=== PATIENT | female | born 1935 | race Two or more races ===

== ENCOUNTER 2021-08-01 03:22 | Inpatient (IN) | payer OTHER ==
[~2021-08-01] VITALS: Ht 162.6 cm; Wt 97.9 kg
[2021-08-01 05:41] LABS: Albumin 3.5 g/dL (3.4-5.0); Calcium 8.6 mg/dL (8.5-10.1); Potassium 4.1 mmol/L (3.5-5.1)
[2021-08-01 05:46] LABS: BUN/Creatinine Ratio 37.1; Bilirubin, Total 0.3 mg/dL (0.2-1.0); Total Protein 7.4 g/dL (6.4-8.2)
[2021-08-01 05:54] LABS: Urine Bacteria MANY /hpf (None Seen); Urine Blood Negative /uL (Negative); Urine Mucus FEW (None Seen); Urine Specific Gravity 1.023 (1.001-1.035); Urine WBC 1 /hpf (0 - 5)
[2021-08-01 06:28] LABS: Basophils # (auto) 0 10 ^3/uL (0-0.2); Basophils % (auto) 0.2 % (0.0-2.0); Eosinophils # (auto) 0 10 ^3/uL (0-0.8); Hemoglobin 11.9 g/dL (12.2-16.2); Lymphocytes # (auto) 0.5 10 ^3/uL (0.4-5.4); Lymphocytes % (auto) 3.5 % (10.0-50.0); Mean Corpuscular Hemoglobin 29.3 pg (28.0-32.0); Mean Corpuscular Volume 91.4 fL (80.0-100.0); Monocytes # (auto) 0.7 10 ^3/uL (0-1.3); Monocytes % (auto) 4.6 % (0.0-12.0); Neutrophils # (auto) 13.6 10 ^3/uL (1.6-8.6); Neutrophils % (auto) 91.7 % (37.0-80.0); Red Blood Cells 4.05 10^6/uL (4.0-5.20); Red Cell Distribution Width 14.2 % (11.8-14.3); White Blood Cell 14.8 10^3/uL (4.4-10.8)
[2021-08-01] MEDS ORDERED: ACETAMINOPHEN 325 MG TAB PO PRN (06:45)
[2021-08-01] MEDS ORDERED: ONDANSETRON HCL 4 MG/2 ML VIAL IV PRN (06:45)
[2021-08-01] MEDS ORDERED: hydrALAZINE HCL 20 MG/ML VL IV PRN (06:45)
[2021-08-01] MEDS ORDERED: DOCUSATE SOD 100 MG CAP PO PRN (06:45)
[2021-08-01] MEDS ORDERED: MORPHINE SULFATE INJECTION 2 MG/ML SYRG IV PRN (07:30)
[2021-08-01] MEDS ORDERED: NITROGLYCERIN 0.4 MG SL TAB SL PRN (07:30)
[2021-08-01] MEDS: cefTRIAXone 1GM/50ML D5W 50 ML IV SCH (10:39)
[2021-08-01] MEDS: SODIUM CHLORIDE 0.9% 1,000 ML IV SCH ×2 (10:39→23:25)
[2021-08-01] MEDS: FAMOTIDINE (10MG/ML) 2ML VL IV SCH (10:42)
[2021-08-01] MEDS: METOPROLOL TARTRATE 25 MG TAB PO SCH ×2 (10:42→21:54)
[2021-08-01] MEDS: ZINC SULFATE 220mg CAP or TAB PO SCH (10:42)
[2021-08-01] MEDS: MULTIPLE VITAMIN TAB PO SCH (10:42)
[2021-08-01] MEDS: ASCORBIC ACID 500 MG TAB PO SCH ×2 (10:43→21:54)
[2021-08-01] MEDS: ENOXAPARIN SOD 40 MG/0.4 ML SYRINGE SC SCH (10:43)
[2021-08-01] MEDS: HYDROcodone-ACET 5/325MG TAB PO PRN (17:17)
[2021-08-01 23:24] VITALS: BP 105/61
[2021-08-02] VITALS (8 sets, daily range): BP systolic 96–122; BP diastolic 49–85
[2021-08-02] MEDS ORDERED: OXYB5TAB61 PO (00:40)
[2021-08-02] MEDS ORDERED: LISI-706 PO (00:44)
[2021-08-02 07:23] LABS: Potassium 4.2 mmol/L (3.5-5.1)
[2021-08-02 07:26] LABS: Basophils # (auto) 0.1 10 ^3/uL (0-0.2); Basophils % (auto) 0.7 % (0.0-2.0); Eosinophils # (auto) 0.2 10 ^3/uL (0-0.8); Eosinophils % (auto) 1.8 % (0.0-7.0); Hemoglobin 10.1 g/dL (12.2-16.2); Lymphocytes # (auto) 1.2 10 ^3/uL (0.4-5.4); Mean Corpuscular Hemoglobin 29.9 pg (28.0-32.0); Mean Corpuscular Hgb Conc. 33.6 g/dL (32.0-36.0); Monocytes # (auto) 1.2 10 ^3/uL (0-1.3); Monocytes % (auto) 11.1 % (0.0-12.0); Neutrophils # (auto) 8.2 10 ^3/uL (1.6-8.6); Neutrophils % (auto) 75.4 % (37.0-80.0); Red Blood Cells 3.38 10^6/uL (4.0-5.20); Red Cell Distribution Width 13.8 % (11.8-14.3); White Blood Cell 10.9 10^3/uL (4.4-10.8)
[2021-08-02 07:29] LABS: Albumin 2.8 g/dL (3.4-5.0); BUN/Creatinine Ratio 33.8; Calcium 8.4 mg/dL (8.5-10.1)
[2021-08-02 07:31] LABS: Bilirubin, Total 0.6 mg/dL (0.2-1.0); Total Protein 5.8 g/dL (6.4-8.2)
[2021-08-02] MEDS: cefTRIAXone 1GM/50ML D5W 50 ML IV SCH (08:58)
[2021-08-02] MEDS: FAMOTIDINE (10MG/ML) 2ML VL IV SCH (08:58)
[2021-08-02] MEDS: ZINC SULFATE 220mg CAP or TAB PO SCH (08:59)
[2021-08-02] MEDS: ASCORBIC ACID 500 MG TAB PO SCH (08:59)
[2021-08-02] MEDS: MULTIPLE VITAMIN TAB PO SCH (08:59)
[2021-08-02] MEDS: METOPROLOL TARTRATE 25 MG TAB PO SCH ×2 (08:59→21:36)
[2021-08-02] MEDS: ENOXAPARIN SOD 40 MG/0.4 ML SYRINGE SC SCH (10:00)
[2021-08-02] MEDS ORDERED: BUPIVACAINE 0.5% P/F INJ 10 ML VIAL ONE (13:32)
[2021-08-02] MEDS ORDERED: fentaNYL CITRATE 100 MCG/2 ML VL ONE (13:33)
[2021-08-02] MEDS ORDERED: MORPHINE SULF PF 2 MG/2 ML SYRG ONE (13:33)
[2021-08-02] MEDS ORDERED: KETAMINE HCL 10 ML ONE (13:33)
[2021-08-02] MEDS ORDERED: MIDAZOLAM HCL 2MG/2ML 2ml VIAL (1mg/ml) ONE (13:33)
[2021-08-02] MEDS ORDERED: GLYCOPYRROLATE 0.2 MG/ML 1ML VIAL ONE (13:34)
[2021-08-02] MEDS ORDERED: ONDANSETRON HCL 4 MG/2 ML VIAL ONE (13:34)
[2021-08-02] MEDS ORDERED: PROPOFOL 10 MG/ML 20 ML IV ONE (13:34)
[2021-08-02] MEDS ORDERED: ePHEDrine SULFATE 50 MG/ML AMP ONE (13:34)
[2021-08-02] MEDS ORDERED: ceFAZolin 1GM/50ML 100 ML IV ONE (13:49)
[2021-08-02] MEDS ORDERED: BUPIVACAINE 0.25% INJ 50ML VIAL ONE (14:09)
[2021-08-02] MEDS ORDERED: TRANEXAMIC ACID 20 ML ONE (14:26)
[2021-08-02] MEDS ORDERED: DexAMETHasone SOD PHOS 10MG/1ML VIAL INJ IV PRN (17:00)
[2021-08-02] MEDS ORDERED: diphenhdrAMINE HCL 50 MG/1 ML VL IV PRN (17:00)
[2021-08-02] MEDS ORDERED: NALOXONE HCL 0.4 MG/ML VIAL IV PRN (17:00)
[2021-08-02] MEDS ORDERED: ONDANSETRON HCL 4 MG/2 ML VIAL IV PRN (17:00)
[2021-08-02] MEDS ORDERED: FAMOTIDINE (10MG/ML) 2ML VL IV ONE (17:00)
[2021-08-02] MEDS: LACTATED RINGER'S 1,000 ML IV SCH (20:18)
[2021-08-02] MEDS: ceFAZolin 1GM/50ML 50 ML IV SCH (21:35)
[2021-08-03] VITALS (19 sets, daily range): BP systolic 95–118; BP diastolic 44–58
[2021-08-03] MEDS: LACTATED RINGER'S 1,000 ML IV SCH ×2 (01:00→09:55)
[2021-08-03] MEDS: ceFAZolin 1GM/50ML 50 ML IV SCH (04:09)
[2021-08-03 06:15] LABS: Basophils # (auto) 0 10 ^3/uL (0-0.2); Eosinophils # (auto) 0 10 ^3/uL (0-0.8); Lymphocytes # (auto) 0.7 10 ^3/uL (0.4-5.4); Red Cell Distribution Width 13.5 % (11.8-14.3)
[2021-08-03 06:18] LABS: Basophils % (auto) 0.2 % (0.0-2.0); Hemoglobin 8.3 g/dL (12.2-16.2); Lymphocytes % (auto) 5.1 % (10.0-50.0); Mean Corpuscular Hemoglobin 30.6 pg (28.0-32.0); Mean Corpuscular Hgb Conc. 34.4 g/dL (32.0-36.0); Monocytes # (auto) 1.1 10 ^3/uL (0-1.3); Monocytes % (auto) 8.8 % (0.0-12.0); Neutrophils % (auto) 85.9 % (37.0-80.0); White Blood Cell 12.8 10^3/uL (4.4-10.8)
[2021-08-03 06:31] LABS: Albumin 2.4 g/dL (3.4-5.0); Calcium 7.7 mg/dL (8.5-10.1); Potassium 4.6 mmol/L (3.5-5.1)
[2021-08-03 06:34] LABS: BUN/Creatinine Ratio 32.1; Bilirubin, Total 0.4 mg/dL (0.2-1.0); Total Protein 5.1 g/dL (6.4-8.2)
[2021-08-03] MEDS: ENOXAPARIN SOD 40 MG/0.4 ML SYRINGE SC SCH (09:52)
[2021-08-03] MEDS: HYDROcodone-ACET 5/325MG TAB PO PRN (09:52)
[2021-08-03] MEDS: ZINC SULFATE 220mg CAP or TAB PO SCH (09:53)
[2021-08-03] MEDS: METOPROLOL TARTRATE 25 MG TAB PO SCH (09:53)
[2021-08-03] MEDS: MULTIPLE VITAMIN TAB PO SCH (09:53)
[2021-08-03] MEDS ORDERED: LACTATED RINGER'S 1,000 ML IV SCH (10:45)
[2021-08-04 05:00] VITALS: BP 116/55
[2021-08-04 07:08] LABS: Basophils # (auto) 0.1 10 ^3/uL (0-0.2); Basophils % (auto) 0.4 % (0.0-2.0); Eosinophils # (auto) 0 10 ^3/uL (0-0.8); Eosinophils % (auto) 0.3 % (0.0-7.0); Hematocrit 22.3 % (36.0-46.0); Hemoglobin 7.8 g/dL (12.2-16.2); Lymphocytes # (auto) 0.9 10 ^3/uL (0.4-5.4); Lymphocytes % (auto) 7.6 % (10.0-50.0); Mean Corpuscular Hemoglobin 30.8 pg (28.0-32.0); Mean Corpuscular Volume 87.9 fL (80.0-100.0); Monocytes # (auto) 1.4 10 ^3/uL (0-1.3); Monocytes % (auto) 11.2 % (0.0-12.0); Neutrophils # (auto) 9.7 10 ^3/uL (1.6-8.6); Neutrophils % (auto) 80.5 % (37.0-80.0); Red Blood Cells 2.54 10^6/uL (4.0-5.20); Red Cell Distribution Width 13.6 % (11.8-14.3); White Blood Cell 12.1 10^3/uL (4.4-10.8)
[2021-08-04 07:26] LABS: BUN/Creatinine Ratio 34.7; Calcium 7.8 mg/dL (8.5-10.1); Potassium 4.1 mmol/L (3.5-5.1)
[2021-08-04] MEDS ORDERED: cefTRIAXone 1GM/50ML D5W 50 ML IV SCH (09:00)
[2021-08-04 09:14] VITALS: BP 114/55
[2021-08-04] MEDS: ENOXAPARIN SOD 40 MG/0.4 ML SYRINGE SC SCH (09:27)
[2021-08-04] MEDS: MULTIPLE VITAMIN TAB PO SCH (09:27)
[2021-08-04] MEDS: HYDROcodone-ACET 5/325MG TAB PO PRN (09:28)
[2021-08-04] MEDS: Ensure HIGH Protein Chocolate 8oz Bottle PO SCH ×2 (12:00→19:42)
[2021-08-04 13:00] VITALS: BP 105/71
[2021-08-04 17:00] VITALS: BP 102/61
[2021-08-04 22:00] VITALS: BP 107/60
[2021-08-05 05:03] VITALS: BP 118/58
[2021-08-05 06:48] LABS: Basophils # (auto) 0 10 ^3/uL (0-0.2); Eosinophils % (auto) 1.2 % (0.0-7.0); Mean Corpuscular Hemoglobin 30.1 pg (28.0-32.0); Monocytes # (auto) 1.3 10 ^3/uL (0-1.3)
[2021-08-05 06:50] LABS: Basophils % (auto) 0.2 % (0.0-2.0); Eosinophils # (auto) 0.1 10 ^3/uL (0-0.8); Hematocrit 21.7 % (36.0-46.0); Hemoglobin 7.4 g/dL (12.2-16.2); Lymphocytes % (auto) 8.3 % (10.0-50.0); Mean Corpuscular Hgb Conc. 34.2 g/dL (32.0-36.0); Mean Corpuscular Volume 88.2 fL (80.0-100.0); Monocytes % (auto) 10.5 % (0.0-12.0); Neutrophils % (auto) 79.8 % (37.0-80.0); Red Blood Cells 2.46 10^6/uL (4.0-5.20); Red Cell Distribution Width 13.4 % (11.8-14.3); White Blood Cell 12.5 10^3/uL (4.4-10.8)
[2021-08-05] MEDS: Ensure HIGH Protein Chocolate 8oz Bottle PO SCH ×3 (08:00→18:00)
[2021-08-05 08:33] VITALS: BP 116/59
[2021-08-05] MEDS ORDERED: levoFLOXacin 500 MG TAB PO SCH (10:00)
[2021-08-05] MEDS: MULTIPLE VITAMIN TAB PO SCH (10:19)
[2021-08-05] MEDS: ENOXAPARIN SOD 40 MG/0.4 ML SYRINGE SC SCH (10:20)
[2021-08-05 13:00] VITALS: BP 113/59
[2021-08-05 15:43] VITALS: BP 107/78
[2021-08-05 16:03] VITALS: BP 111/50
[2021-08-05] MEDS: HYDROcodone-ACET 5/325MG TAB PO PRN ×2 (18:53→18:56)
[2021-08-05 22:00] VITALS: BP 130/56
== END 2021-08-05 23:30 | DRG 481 ==
LOC: EDBD 03:22 → ER 03:22 → OVERFLOW 03:23 → CENTRAL 23:28 → TELE-CENTR 08-02 06:42
PROVIDERS: ADMIT Nurse Practitioner Family; ATTEND Internal Medicine
PROC: 30233N1 Transfusion of Nonautologous Red Blood Cells into Peripheral Vein, Percutaneous Approach (ICD-10-PCS; 2021-08-02)
PROC: 0QS704Z Reposition Left Upper Femur with Internal Fixation Device, Open Approach (ICD-10-PCS; principal; 2021-08-02 14:17)
DX: S72.142A Displaced intertrochanteric fracture of left femur, initial encounter for closed fracture (principal); N39.0 Urinary tract infection, site not specified; N17.9 Acute kidney failure, unspecified; R65.10 Systemic inflammatory response syndrome (SIRS) of non-infectious origin without acute organ dysfunction; I10 Essential (primary) hypertension; R73.9 Hyperglycemia, unspecified; I49.3 Ventricular premature depolarization; E66.9 Obesity, unspecified; M85.80 Other specified disorders of bone density and structure, unspecified site; Z20.822 Contact with and (suspected) exposure to COVID-19; D64.9 Anemia, unspecified; W18.39XA Other fall on same level, initial encounter; Y93.01 Activity, walking, marching and hiking; Y92.098 Other place in other non-institutional residence as the place of occurrence of the external cause; Z82.0 Family history of epilepsy and other diseases of the nervous system; Z80.1 Family history of malignant neoplasm of trachea, bronchus and lung; Y99.8 Other external cause status; Z68.37 Body mass index [BMI] 37.0-37.9, adult
CPT/HCPCS: 36415; 71045; 73502; 76000; 80048; 80053; 81001; 83036; 83735; 84484; 85025; 85610; 86850; 86900; 86901; 86920; 87086; 87088; 87186; 87426; 93005; 93306; 96365; 96375; 97110; 97116; 97163; 97530; A4565; G0378; J0690; J0696; J2250; J2405; J2704; J3490

== ENCOUNTER 2021-12-13 11:03 | Day surgery (SDC) | payer OTHER ==
[2021-12-09 13:19] LABS: Basophils # (auto) 0.1 10 ^3/uL (0-0.2); Basophils % (auto) 1.4 % (0.0-2.0); Eosinophils # (auto) 0.2 10 ^3/uL (0-0.8); Eosinophils % (auto) 2.4 % (0.0-7.0); Hematocrit 35.5 % (36.0-46.0); Hemoglobin 11.5 g/dL (12.2-16.2); Lymphocytes # (auto) 0.7 10 ^3/uL (0.4-5.4); Lymphocytes % (auto) 8.9 % (10.0-50.0); Mean Corpuscular Hemoglobin 27.2 pg (28.0-32.0); Mean Corpuscular Hgb Conc. 32.5 g/dL (32.0-36.0); Mean Corpuscular Volume 83.6 fL (80.0-100.0); Monocytes # (auto) 0.6 10 ^3/uL (0-1.3); Monocytes % (auto) 7.1 % (0.0-12.0); Neutrophils # (auto) 6.4 10 ^3/uL (1.6-8.6); Neutrophils % (auto) 80.2 % (37.0-80.0); Red Blood Cells 4.24 10^6/uL (4.0-5.20); Red Cell Distribution Width 16.8 % (11.8-14.3)
[2021-12-09 13:33] LABS: INR 1.05 (0.9-1.15); Partial Thromboplastin Time 27.9 sec (23.6-33.0)
[2021-12-09 13:50] LABS: Albumin 3.5 g/dL (3.4-5.0); Potassium 3.9 mmol/L (3.5-5.1)
[2021-12-09 13:54] LABS: BUN/Creatinine Ratio 29.8; Bilirubin, Total 0.5 mg/dL (0.2-1.0)
[~2021-12-13] VITALS: Ht 160 cm; Wt 82.1 kg
[~2021-12-13 11:03] MED LIST: LISI-706 PO
[2021-12-13] MEDS ORDERED: PHENYLEPHRINE HCL 10 MG/ML VL IV ONE (11:04)
[2021-12-13] MEDS ORDERED: ceFAZolin 1GM/50ML 100 ML IV ONE (11:35)
[2021-12-13] MEDS ORDERED: LIDOCAINE 1%HCL (LOCAL ANESTH) 10 ML MDV ONE (12:16)
[2021-12-13] MEDS ORDERED: BUPIVACAINE W/ EPINEPH 0.25% INJ 50ML MDV ONE (12:16)
[2021-12-13] MEDS ORDERED: MIDAZOLAM HCL 2MG/2ML 2ml VIAL (1mg/ml) ONE (12:31)
[2021-12-13] MEDS ORDERED: fentaNYL CITRATE 100 MCG/2 ML VL ONE (12:31)
[2021-12-13] MEDS ORDERED: PROPOFOL 10 MG/ML 20 ML IV ONE (12:43)
[2021-12-13] MEDS ORDERED: DexAMETHasone SOD PHOS 10MG/1ML VIAL INJ ONE (12:43)
[2021-12-13 13:30] VITALS: BP 121/52
== END 2021-12-13 13:45 | disposition home or self-care (01) ==
LOC: SUR 11:03
PROVIDERS: ATTEND Orthopaedic Surgery Adult Reconstructive Orthopaedic Surgery
DX: T84.021A Dislocation of internal left hip prosthesis, initial encounter (principal); I10 Essential (primary) hypertension; I25.10 Atherosclerotic heart disease of native coronary artery without angina pectoris; Z98.41 Cataract extraction status, right eye; Z98.42 Cataract extraction status, left eye; Z86.2 Personal history of diseases of the blood and blood-forming organs and certain disorders involving the immune mechanism; Z80.1 Family history of malignant neoplasm of trachea, bronchus and lung; Z82.69 Family history of other diseases of the musculoskeletal system and connective tissue; Z20.822 Contact with and (suspected) exposure to COVID-19; Y83.1 Surgical operation with implant of artificial internal device as the cause of abnormal reaction of the patient, or of later complication, without mention of misadventure at the time of the procedure
CPT/HCPCS: 20680; 36415; 73501; 76000; 80053; 85025; 85610; 85730; J0690; J1100; J2001; J2250; J2370; J2704; J3010; U0003

== ENCOUNTER 2021-12-18 15:20 | Emergency (ER) | payer OTHER ==
[~2021-12-18] VITALS: Ht 160 cm; Wt 78.9 kg
[2021-12-18 16:44] VITALS: BP 114/59
== END 2021-12-18 16:50 | disposition home or self-care (01) ==
LOC: ER 15:20
DX: L02.416 Cutaneous abscess of left lower limb (principal); I10 Essential (primary) hypertension

== ENCOUNTER 2022-03-02 11:11 | Inpatient (IN) | payer OTHER ==
[~2022-03-02] VITALS: Ht 160 cm; Wt 86.3 kg
[2022-03-02 12:36] LABS: Basophils # (auto) 0 10 ^3/uL (0-0.2); Basophils % (auto) 0.5 % (0.0-2.0); Eosinophils # (auto) 0.1 10 ^3/uL (0-0.8); Eosinophils % (auto) 1.4 % (0.0-7.0); Hematocrit 33.4 % (36.0-46.0); Hemoglobin 10.7 g/dL (12.2-16.2); Lymphocytes # (auto) 0.7 10 ^3/uL (0.4-5.4); Lymphocytes % (auto) 8.3 % (10.0-50.0); Mean Corpuscular Hemoglobin 27.8 pg (28.0-32.0); Mean Corpuscular Volume 86.8 fL (80.0-100.0); Monocytes # (auto) 0.7 10 ^3/uL (0-1.3); Monocytes % (auto) 8.2 % (0.0-12.0); Neutrophils # (auto) 6.6 10 ^3/uL (1.6-8.6); Neutrophils % (auto) 81.6 % (37.0-80.0); Red Blood Cells 3.85 10^6/uL (4.0-5.20); Red Cell Distribution Width 14.9 % (11.8-14.3); White Blood Cell 8.1 10^3/uL (4.4-10.8)
[2022-03-02 12:49] LABS: Albumin 3.4 g/dL (3.4-5.0); Calcium 8.9 mg/dL (8.5-10.1); INR 0.98 (0.9-1.15); Potassium 3.5 mmol/L (3.5-5.1)
[2022-03-02 12:53] LABS: BUN/Creatinine Ratio 34.5; Bilirubin, Total 0.6 mg/dL (0.2-1.0); Total Protein 7.2 g/dL (6.4-8.2)
[2022-03-02] MEDS ORDERED: DEXTROSE (50%) 50ML SYRG IV PRN (18:30)
[2022-03-02] MEDS ORDERED: ONDANSETRON HCL 4 MG/2 ML VIAL IV PRN (18:30)
[2022-03-02] MEDS ORDERED: DOCUSATE SOD 100 MG CAP PO PRN (18:30)
[2022-03-02] MEDS ORDERED: HYDROcodone-ACET 5/325MG TAB PO PRN (18:30)
[2022-03-02] MEDS ORDERED: ACETAMINOPHEN 325 MG TAB PO PRN (18:30)
[2022-03-02] MEDS ORDERED: HYDROmorphone HCL 2 MG/ML VL/or syr IV PRN (18:30)
[2022-03-02] MEDS ORDERED: POTASSIUM EFFERVESENT TAB 25 MEQ PO ONE (18:45)
[2022-03-02] MEDS ORDERED: LABETALOL HCL 5 MG/ML 4ML SYRINGE IV PRN (18:45)
[2022-03-02] MEDS: LACTATED RINGER'S 1,000 ML IV ONE ×2 (19:04→22:09)
[2022-03-02 19:23] LABS: % Iron Saturation 12.2 % (15-50)
[2022-03-02 22:00] VITALS: BP 106/54
[2022-03-02] MEDS: SODIUM CHLOR 0.9% PF (SALINE LOCK) 10ML VIAL/SYR IV SCH (22:10)
[2022-03-02 23:01] LABS: Urine Bacteria MANY /hpf (None Seen); Urine Blood Negative /uL (Negative); Urine Mucus FEW (None Seen); Urine Specific Gravity 1.021 (1.001-1.035); Urine WBC 1 /hpf (0 - 5)
[2022-03-02 23:24] LABS: Creatinine, Urine 109 mg/dL (30.0-125.0); Sodium Urine 92 mmol/L (40-220)
[2022-03-03] MEDS: ACCU-CHEK COMFORT CURVE STRIP VI SCH ×4 (00:05→18:30)
[2022-03-03 05:00] VITALS: BP 104/47
[2022-03-03] MEDS: SODIUM CHLOR 0.9% PF (SALINE LOCK) 10ML VIAL/SYR IV SCH ×3 (05:17→22:00)
[2022-03-03] MEDS: InsuLIN REG 1unit/0.01ml Soln (100units/ml) SC SCH ×4 (05:18→18:30)
[2022-03-03 08:11] LABS: BUN/Creatinine Ratio 33.3; Calcium 8.7 mg/dL (8.5-10.1); Magnesium 1.9 mg/dL (1.6-2.6)
[2022-03-03] MEDS: cefTRIAXone 1GM/50ML D5W 50 ML IV SCH (08:51)
[2022-03-03 09:00] VITALS: BP 122/61
[2022-03-03 13:00] VITALS: BP 113/84
[2022-03-03] MEDS: SODIUM FERR GLUC 62.5MG/5ML 125 MG in SODIUM CHL 0.9% 100 ML IV SCH (13:45)
[2022-03-03 17:00] VITALS: BP 117/63
[2022-03-03 22:00] VITALS: BP 114/53
[2022-03-04] MEDS: InsuLIN REG 1unit/0.01ml Soln (100units/ml) SC SCH ×4 (00:35→17:35)
[2022-03-04 05:00] VITALS: BP 106/57
[2022-03-04] MEDS: SODIUM CHLOR 0.9% PF (SALINE LOCK) 10ML VIAL/SYR IV SCH ×2 (06:00→13:22)
[2022-03-04] MEDS: ACCU-CHEK COMFORT CURVE STRIP VI SCH ×4 (08:08→17:36)
[2022-03-04] MEDS: cefTRIAXone 1GM/50ML D5W 50 ML IV SCH (08:44)
[2022-03-04 09:00] VITALS: BP 115/63
[2022-03-04 13:02] VITALS: BP 115/64
[2022-03-04] MEDS: SODIUM FERR GLUC 62.5MG/5ML 125 MG in SODIUM CHL 0.9% 100 ML IV SCH (13:21)
[2022-03-04] MEDS ORDERED: ENOXAPARIN SOD 40 MG/0.4 ML SYRINGE SC ONE (15:00)
[2022-03-04 17:00] VITALS: BP 111/68
[2022-03-04 22:00] VITALS: BP 123/66
[2022-03-05] MEDS: InsuLIN REG 1unit/0.01ml Soln (100units/ml) SC SCH ×4 (00:35→23:30)
[2022-03-05] MEDS: ACCU-CHEK COMFORT CURVE STRIP VI SCH ×4 (00:38→23:30)
[2022-03-05] MEDS: SODIUM CHLOR 0.9% PF (SALINE LOCK) 10ML VIAL/SYR IV SCH ×4 (00:46→21:51)
[2022-03-05 05:00] VITALS: BP 121/69
[2022-03-05 06:15] LABS: Basophils # (auto) 0 10 ^3/uL (0-0.2); Basophils % (auto) 0.5 % (0.0-2.0); Eosinophils # (auto) 0.3 10 ^3/uL (0-0.8); Eosinophils % (auto) 3.6 % (0.0-7.0); Hematocrit 30.3 % (36.0-46.0); Hemoglobin 10.1 g/dL (12.2-16.2); Lymphocytes # (auto) 0.9 10 ^3/uL (0.4-5.4); Lymphocytes % (auto) 11.3 % (10.0-50.0); Mean Corpuscular Hemoglobin 28.5 pg (28.0-32.0); Mean Corpuscular Hgb Conc. 33.4 g/dL (32.0-36.0); Mean Corpuscular Volume 85.3 fL (80.0-100.0); Monocytes # (auto) 0.7 10 ^3/uL (0-1.3); Monocytes % (auto) 8.4 % (0.0-12.0); Neutrophils # (auto) 6.2 10 ^3/uL (1.6-8.6); Neutrophils % (auto) 76.2 % (37.0-80.0); Red Blood Cells 3.55 10^6/uL (4.0-5.20); Red Cell Distribution Width 14.7 % (11.8-14.3); White Blood Cell 8.2 10^3/uL (4.4-10.8)
[2022-03-05 06:38] LABS: BUN/Creatinine Ratio 33.3; Calcium 8.4 mg/dL (8.5-10.1)
[2022-03-05] MEDS: cefTRIAXone 1GM/50ML D5W 50 ML IV SCH (09:08)
[2022-03-05] MEDS: ENOXAPARIN SOD 40 MG/0.4 ML SYRINGE SC SCH (09:08)
[2022-03-05 09:18] VITALS: BP 118/73
[2022-03-05 13:00] VITALS: BP 123/55
[2022-03-05] MEDS: SODIUM FERR GLUC 62.5MG/5ML 125 MG in SODIUM CHL 0.9% 100 ML IV SCH (13:11)
[2022-03-05 16:44] VITALS: BP 117/63
[2022-03-05 21:41] VITALS: BP 130/67
[2022-03-06 04:42] VITALS: BP 112/60
[2022-03-06] MEDS: InsuLIN REG 1unit/0.01ml Soln (100units/ml) SC SCH ×3 (05:27→18:45)
[2022-03-06] MEDS: ACCU-CHEK COMFORT CURVE STRIP VI SCH ×4 (05:27→18:45)
[2022-03-06] MEDS: SODIUM CHLOR 0.9% PF (SALINE LOCK) 10ML VIAL/SYR IV SCH ×2 (05:27→14:17)
[2022-03-06 09:20] VITALS: BP 133/68
[2022-03-06] MEDS: cefTRIAXone 1GM/50ML D5W 50 ML IV SCH (10:05)
[2022-03-06] MEDS: ENOXAPARIN SOD 40 MG/0.4 ML SYRINGE SC SCH (10:06)
[2022-03-06] MEDS: SODIUM FERR GLUC 62.5MG/5ML 125 MG in SODIUM CHL 0.9% 100 ML IV SCH (12:23)
[2022-03-06 12:46] VITALS: BP 116/73
[2022-03-06 16:55] VITALS: BP 125/65
== END 2022-03-06 20:57 | disposition short-term general hospital (02) | DRG 560 ==
LOC: EDUNIT# 11:11 → ER 11:11 → EDBD 11:11 → OVERFLOW 18:26 → WEST WING 20:30
PROVIDERS: ADMIT Internal Medicine; ATTEND Internal Medicine
DX: T84.011A Broken internal left hip prosthesis, initial encounter (principal); N39.0 Urinary tract infection, site not specified; S72.22XK Displaced subtrochanteric fracture of left femur, subsequent encounter for closed fracture with nonunion; S09.90XA Unspecified injury of head, initial encounter; M16.11 Unilateral primary osteoarthritis, right hip; D50.9 Iron deficiency anemia, unspecified; W18.39XA Other fall on same level, initial encounter; Y93.01 Activity, walking, marching and hiking; Z20.822 Contact with and (suspected) exposure to COVID-19; Y83.8 Other surgical procedures as the cause of abnormal reaction of the patient, or of later complication, without mention of misadventure at the time of the procedure; Y79.2 Prosthetic and other implants, materials and accessory orthopedic devices associated with adverse incidents; I10 Essential (primary) hypertension; Z80.1 Family history of malignant neoplasm of trachea, bronchus and lung; Z82.0 Family history of epilepsy and other diseases of the nervous system; Y92.89 Other specified places as the place of occurrence of the external cause; Y99.8 Other external cause status
CPT/HCPCS: 36415; 70450; 71045; 72192; 73502; 80048; 80053; 81001; 82306; 82570; 82728; 82962; 83036; 83540; 83550; 83735; 84300; 84443; 84484; 85025; 85610; 85730; 93005; G0378; J0696; J1815

== ENCOUNTER → 2023-01-04 | Outpatient (CLI) | payer OTHER ==
[2023-01-04 11:02] LABS: Basophils # (auto) 0.1 10 ^3/uL (0-0.2); Basophils % (auto) 0.8 % (0.0-2.0); Eosinophils # (auto) 0.2 10 ^3/uL (0-0.8); Eosinophils % (auto) 2.6 % (0.0-7.0); Hematocrit 37.8 % (36.0-46.0); Hemoglobin 12.4 g/dL (12.2-16.2); Lymphocytes # (auto) 1.2 10 ^3/uL (0.4-5.4); Lymphocytes % (auto) 14.9 % (10.0-50.0); Mean Corpuscular Hemoglobin 28.1 pg (28.0-32.0); Mean Corpuscular Hgb Conc. 32.9 g/dL (32.0-36.0); Mean Corpuscular Volume 85.4 fL (80.0-100.0); Monocytes # (auto) 0.5 10 ^3/uL (0-1.3); Monocytes % (auto) 6.8 % (0.0-12.0); Neutrophils # (auto) 5.8 10 ^3/uL (1.6-8.6); Neutrophils % (auto) 74.9 % (37.0-80.0); Nucleated Red Blood Cells % 0.1 %; Red Blood Cells 4.42 10^6/uL (4.0-5.20); Red Cell Distribution Width 14.4 % (11.8-14.3); White Blood Cell 7.8 10^3/uL (4.4-10.8)
[2023-01-04 11:38] LABS: Albumin 3.3 g/dL (3.4-5.0); Potassium 3.8 mmol/L (3.5-5.1)
[2023-01-04 11:43] LABS: BUN/Creatinine Ratio 31.3 (10.0-20.0); Bilirubin, Total 0.5 mg/dL (0.2-1.0); Total Protein 7.7 g/dL (6.4-8.2)
== END | disposition home or self-care (01) ==
LOC: LAB 10:46
PROVIDERS: ATTEND Nurse Practitioner
DX: I10 Essential (primary) hypertension (principal); E78.5 Hyperlipidemia, unspecified
CPT/HCPCS: 36415; 80053; 80061; 84443; 85025

== ENCOUNTER 2023-04-10 12:01 | Inpatient (IN) | payer OTHER ==
[~2023-04-10] VITALS: Ht 160 cm; Wt 48.5 kg
[2023-04-10] MEDS ORDERED: SODIUM CHLORIDE 0.9% 1,000 ML IV ONE ×2 (12:15→13:00)
[2023-04-10 13:02] LABS: Band Neutrophils % (manual) 0; Basophils % (manual) 0 (0.0-2.0); Blast Cells 0; Eosinophils % (manual) 0 (0-7); Metamyelocytes % 0; Monocytes % (manual) 0 (0-12); Myelocytes % 0; Promyelocytes % 0; Reactive Lymphocytes 0
[2023-04-10] MEDS ORDERED: PIPERACILLIN-TAZOB 3.375GM 100 ML IV ONE (13:15)
[2023-04-10] MEDS ORDERED: ACETAMINOPHEN 325 MG TAB PO ONE (13:15)
[2023-04-10 13:30] VITALS: PULSE 128; RESP 27; O2SAT 98
[2023-04-10 13:35] LABS: Hematocrit 40.3 % (36.0-46.0); Hemoglobin 13.2 g/dL (12.2-16.2); Mean Corpuscular Hgb Conc. 32.7 g/dL (32.0-36.0); Mean Corpuscular Volume 88.8 fL (80.0-100.0); Red Blood Cells 4.54 10^6/uL (4.0-5.20); Red Cell Distribution Width 16.1 % (11.8-14.3)
[2023-04-10 13:42] LABS: Band Neutrophils % (manual) 0; Basophils % (manual) 0 (0.0-2.0); Blast Cells 0; Eosinophils % (manual) 0 (0-7); Metamyelocytes % 0; Monocytes % (manual) 0 (0-12); Myelocytes % 0; Promyelocytes % 0; Reactive Lymphocytes 0
[2023-04-10 13:47] LABS: Alanine Aminotransferase 11 U/L (7-40); Albumin 3.5 g/dL (3.2-4.8); Alkaline Phosphatase 84 U/L (46-116); Anion Gap 12.8 (5-15); Aspartate Aminotransferase 17 U/L (13-40); BUN/Creatinine Ratio 25.5 (10.0-20.0); Blood Urea Nitrogen 28 mg/dL (9-23); Calcium 8.6 mg/dL (8.5-10.1); Carbon Dioxide 18.2 mmol/L (20-30); Chloride 111 mmol/L (98-107); Creatine Kinase IFCC 28 U/L (34-145); Glucose 102 mg/dL (74-106); Lipase 69 U/L (12-53); Magnesium 1.6 mg/dL (1.6-2.6); Potassium 3.7 mmol/L (3.5-5.1); Sodium 142 mmol/L (136-145)
[2023-04-10 13:48] LABS: Bilirubin, Total 0.7 mg/dL (0.2-1.0)
[2023-04-10 14:02] LABS: Lymphocytes % (manual) 4 (10.0-50.0)
[2023-04-10 14:03] LABS: Platelet Estimate Decreased
[2023-04-10 14:06] LABS: Lymphocytes % (manual) 4 (10.0-50.0); Platelet Estimate Decreased
[2023-04-10] MEDS ORDERED: ACETAMINOPHEN 325 MG TAB PO PRN (16:15)
[2023-04-10] MEDS ORDERED: NITROGLYCERIN 0.4 MG SL TAB SL PRN (16:15)
[2023-04-10] MEDS ORDERED: MORPHINE SULFATE INJ 2 MG/ml SYRG IV PRN (16:15)
[2023-04-10] MEDS ORDERED: IBUPROFEN 600 MG TAB PO PRN (16:15)
[2023-04-10] MEDS ORDERED: HYDROcodone-ACET 5/325MG TAB PO PRN (16:15)
[2023-04-10] MEDS ORDERED: ONDANSETRON HCL 4 MG/2 ML VIAL IV PRN (16:45)
[2023-04-10] MEDS ORDERED: LABETALOL HCL 5 MG/ML 4ML SYRINGE IV PRN (16:45)
[2023-04-10] MEDS ORDERED: ASPirin-EC 325mg tab PO ONE (17:00)
[2023-04-10] MEDS: NOREPINEPHRINE 8 MG/250ML KIT 250 ML IV SCH (18:30)
[2023-04-10 19:30] VITALS: PULSE 94; RESP 12; O2SAT 97
[2023-04-10] MEDS: SODIUM CHLORIDE 0.9% 1,000 ML IV SCH (19:30)
[2023-04-10 19:50] LABS: Urine Bacteria FEW /hpf (None Seen); Urine Blood 3+ /uL (Negative); Urine Clarity Clear (Clear); Urine Color Yellow (Yellow); Urine Protein, UAD 1+ (Negative); Urine Specific Gravity 1.011 (1.001-1.035); Urine Urobilinogen Normal (Negative); Urine WBC 21 /hpf (0 - 5); Urine pH 8.5 (5.0-8.0)
[2023-04-10] MEDS: metroNIDAZOLE 500MG/100ML 100 ML IV SCH (21:49)
[2023-04-10] MEDS: ATORVASTATIN 20 MG TAB PO SCH (21:49)
[2023-04-10 21:54] LABS: Lactic Acid w/Reflex 6.7 mmol/L (0.4-2.0)
[2023-04-11] MEDS: SODIUM CHLORIDE 0.9% 1,000 ML IV SCH ×3 (02:46→17:39)
[2023-04-11] MEDS ORDERED: DIGOXIN (250MCG/ML) 2 ML AMPULE IV ONE ×2 (03:30)
[2023-04-11] MEDS: metroNIDAZOLE 500MG/100ML 100 ML IV SCH ×3 (06:14→20:50)
[2023-04-11 06:28] LABS: Hematocrit 34.6 % (36.0-46.0); Hemoglobin 11.2 g/dL (12.2-16.2); Mean Corpuscular Hgb Conc. 32.4 g/dL (32.0-36.0); Mean Corpuscular Volume 89.4 fL (80.0-100.0); Red Blood Cells 3.87 10^6/uL (4.0-5.20); Red Cell Distribution Width 16.1 % (11.8-14.3); White Blood Cell 20.6 10^3/uL (4.4-10.8)
[2023-04-11 06:30] LABS: Alanine Aminotransferase 14 U/L (7-40); Albumin 2.8 g/dL (3.2-4.8); Alkaline Phosphatase 69 U/L (46-116); Anion Gap 13.8 (5-15); Aspartate Aminotransferase 26 U/L (13-40); BUN/Creatinine Ratio 13.2 (10.0-20.0); Blood Urea Nitrogen 17 mg/dL (9-23); Calcium 7.5 mg/dL (8.5-10.1); Carbon Dioxide 12.2 mmol/L (20-30); Chloride 112 mmol/L (98-107); Glucose 109 mg/dL (74-106); LDL Cholesterol 53 mg/dL (< 100); Potassium 3.9 mmol/L (3.5-5.1); Sodium 138 mmol/L (136-145); Triglycerides 71 mg/dL (< 150)
[2023-04-11 06:31] LABS: Bilirubin, Total 0.5 mg/dL (0.2-1.0); Cholesterol 96 mg/dL (< 200); HDL Cholesterol 27 mg/dL (40-59); Total Protein 5.2 g/dL (5.7-8.2)
[2023-04-11 06:54] LABS: Basophils % (manual) 0 (0.0-2.0); Blast Cells 0; Eosinophils % (manual) 0 (0-7); Lymphocytes % (manual) 0 (10.0-50.0); Metamyelocytes % 0; Myelocytes % 0; Promyelocytes % 0; Reactive Lymphocytes 0
[2023-04-11] MEDS: ENOXAPARIN SOD 40 MG/0.4 ML SYRINGE SC SCH (08:43)
[2023-04-11] MEDS: ASPirin-EC 81 mg tab PO SCH (08:43)
[2023-04-11] MEDS: cefTRIAXone 1GM/50ML D5W 50 ML IV SCH (09:28)
[2023-04-11] MEDS ORDERED: PANTOPRAZOLE 40 MG TAB PO SCH (10:00)
[2023-04-11 10:49] LABS: Band Neutrophils % (manual) 8; Monocytes % (manual) 2 (0-12); Platelet Estimate Decreased
[2023-04-11] MEDS: NOREPINEPHRINE 8 MG/250ML KIT 250 ML IV SCH (17:45)
[2023-04-11 20:00] VITALS: PULSE 90; RESP 20; O2SAT 97
[2023-04-11] MEDS: ATORVASTATIN 20 MG TAB PO SCH (20:50)
[2023-04-12] MEDS: SODIUM CHLORIDE 0.9% 1,000 ML IV SCH ×2 (01:35→10:02)
[2023-04-12] MEDS: metroNIDAZOLE 500MG/100ML 100 ML IV SCH ×3 (05:02→22:30)
[2023-04-12 05:46] LABS: Basophils # (auto) 0 10 ^3/uL (0-0.2); Basophils % (auto) 0.2 % (0.0-2.0); Eosinophils # (auto) 0.1 10 ^3/uL (0-0.8); Eosinophils % (auto) 0.5 % (0.0-7.0); Hematocrit 32.2 % (36.0-46.0); Hemoglobin 10.4 g/dL (12.2-16.2); Lymphocytes # (auto) 0.7 10 ^3/uL (0.4-5.4); Lymphocytes % (auto) 3.1 % (10.0-50.0); Mean Corpuscular Hemoglobin 28.5 pg (28.0-32.0); Mean Corpuscular Hgb Conc. 32.4 g/dL (32.0-36.0); Mean Corpuscular Volume 87.9 fL (80.0-100.0); Monocytes # (auto) 0.5 10 ^3/uL (0-1.3); Monocytes % (auto) 2.4 % (0.0-12.0); Neutrophils # (auto) 19.5 10 ^3/uL (1.6-8.6); Neutrophils % (auto) 93.8 % (37.0-80.0); Nucleated Red Blood Cells % 0.1 %; Red Blood Cells 3.66 10^6/uL (4.0-5.20); Red Cell Distribution Width 16.8 % (11.8-14.3); White Blood Cell 20.8 10^3/uL (4.4-10.8)
[2023-04-12 06:02] LABS: Lactic Acid w/Reflex 2.8 mmol/L (0.4-2.0)
[2023-04-12 06:19] LABS: Alanine Aminotransferase 15 U/L (7-40); Alkaline Phosphatase 106 U/L (46-116); BUN/Creatinine Ratio 14.6 (10.0-20.0); Blood Urea Nitrogen 19 mg/dL (9-23); Calcium 7.5 mg/dL (8.5-10.1); Chloride 113 mmol/L (98-107); Glucose 90 mg/dL (74-106); Magnesium 1.7 mg/dL (1.6-2.6); Potassium 3.5 mmol/L (3.5-5.1); Sodium 140 mmol/L (136-145)
[2023-04-12 06:20] LABS: Albumin 2.8 g/dL (3.2-4.8); Aspartate Aminotransferase 27 U/L (13-40); Bilirubin, Total 0.4 mg/dL (0.2-1.0); Phosphorus 2.8 mg/dL (2.4-5.1)
[2023-04-12 07:40] VITALS: PULSE 67; RESP 21; O2SAT 98
[2023-04-12] MEDS: cefTRIAXone 1GM/50ML D5W 50 ML IV SCH (09:02)
[2023-04-12] MEDS: ENOXAPARIN SOD 40 MG/0.4 ML SYRINGE SC SCH (10:18)
[2023-04-12] MEDS: ASPirin-EC 81 mg tab PO SCH (10:18)
[2023-04-12] MEDS: NOREPINEPHRINE 8 MG/250ML KIT 250 ML IV SCH (17:45)
[2023-04-12 19:50] VITALS: PULSE 80; RESP 13; O2SAT 99
[2023-04-12] MEDS: ATORVASTATIN 20 MG TAB PO SCH (22:29)
[2023-04-13] VITALS (7 sets, daily range): BP systolic 116–133; BP diastolic 61–62; PULSE 40–76; RESP 16–20; TEMP 97.9–98; O2SAT 97–99
[2023-04-13 05:42] LABS: Basophils # (auto) 0 10 ^3/uL (0-0.2); Basophils % (auto) 0.2 % (0.0-2.0); Hemoglobin 10.6 g/dL (12.2-16.2); Lymphocytes # (auto) 0.8 10 ^3/uL (0.4-5.4); Mean Corpuscular Hemoglobin 28.7 pg (28.0-32.0); Mean Corpuscular Hgb Conc. 33.3 g/dL (32.0-36.0); Neutrophils # (auto) 18.6 10 ^3/uL (1.6-8.6); Red Blood Cells 3.69 10^6/uL (4.0-5.20)
[2023-04-13 05:45] LABS: Eosinophils # (auto) 0.1 10 ^3/uL (0-0.8); Eosinophils % (auto) 0.6 % (0.0-7.0); Hematocrit 31.8 % (36.0-46.0); Lymphocytes % (auto) 3.8 % (10.0-50.0); Mean Corpuscular Volume 86.2 fL (80.0-100.0); Monocytes # (auto) 0.5 10 ^3/uL (0-1.3); Monocytes % (auto) 2.3 % (0.0-12.0); Neutrophils % (auto) 93.1 % (37.0-80.0); Red Cell Distribution Width 16.3 % (11.8-14.3); White Blood Cell 19.9 10^3/uL (4.4-10.8)
[2023-04-13 06:00] LABS: Chloride 114 mmol/L (98-107); Potassium 3.4 mmol/L (3.5-5.1); Sodium 140 mmol/L (136-145)
[2023-04-13 06:01] LABS: Anion Gap 3.4 (5-15); Calcium 7.6 mg/dL (8.5-10.1); Carbon Dioxide 22.6 mmol/L (20-30)
[2023-04-13 06:06] LABS: BUN/Creatinine Ratio 25.7 (10.0-20.0); Blood Urea Nitrogen 18 mg/dL (9-23); Glucose 79 mg/dL (74-106)
[2023-04-13 06:07] LABS: Magnesium 1.7 mg/dL (1.6-2.6)
[2023-04-13] MEDS: metroNIDAZOLE 500MG/100ML 100 ML IV SCH ×2 (06:38→15:05)
[2023-04-13] MEDS ORDERED: POTASSIUM CHL 20 Meq TABLET PO ONE (08:30)
[2023-04-13] MEDS ORDERED: MAGNESIUM OXIDE 400 MG TAB PO ONE (08:30)
[2023-04-13] MEDS: ASPirin-EC 81 mg tab PO SCH (11:01)
[2023-04-13] MEDS: PANTOPRAZOLE 40 MG TAB PO SCH (11:01)
[2023-04-13] MEDS: ENOXAPARIN SOD 30 MG/0.3 ML SYRINGE SC SCH (11:01)
[2023-04-13] MEDS: CEFTRIAXONE SODIUM 2 GM in D5W 5% 100 ML IV SCH (11:01)
[2023-04-13 12:20] LABS: Hepatitis C Antibody Negative (Negative)
[2023-04-13 15:40] LABS: Hepatitis B Surface Antigen Negative (Negative)
[2023-04-14] MEDS: ATORVASTATIN 20 MG TAB PO SCH (00:12)
[2023-04-14] MEDS: metroNIDAZOLE 500MG/100ML 100 ML IV SCH ×3 (00:12→14:58)
[2023-04-14 05:02] VITALS: BP 130/71; PULSE 72; RESP 18; TEMP 97.8; O2SAT 97
[2023-04-14 06:18] LABS: Hematocrit 33.8 % (36.0-46.0); Hemoglobin 11.4 g/dL (12.2-16.2); Mean Corpuscular Hemoglobin 28.9 pg (28.0-32.0); Mean Corpuscular Hgb Conc. 33.6 g/dL (32.0-36.0); Mean Corpuscular Volume 86.2 fL (80.0-100.0); Red Blood Cells 3.93 10^6/uL (4.0-5.20); Red Cell Distribution Width 15.8 % (11.8-14.3); White Blood Cell 14.2 10^3/uL (4.4-10.8)
[2023-04-14 07:11] LABS: Basophils % (manual) 0 (0.0-2.0); Blast Cells 0; Eosinophils % (manual) 0 (0-7); Myelocytes % 0; Promyelocytes % 0; Reactive Lymphocytes 0
[2023-04-14 07:34] LABS: Chloride 115 mmol/L (98-107); Sodium 141 mmol/L (136-145)
[2023-04-14 07:35] LABS: Anion Gap 7.9 (5-15); Carbon Dioxide 18.1 mmol/L (20-30)
[2023-04-14 07:36] LABS: Calcium 7.7 mg/dL (8.5-10.1)
[2023-04-14 07:41] LABS: BUN/Creatinine Ratio 22.7 (10.0-20.0); Blood Urea Nitrogen 15 mg/dL (9-23); Glucose 79 mg/dL (74-106); Magnesium 1.7 mg/dL (1.6-2.6)
[2023-04-14 08:00] VITALS: BP 125/73; PULSE 69; PULSE 75; RESP 20; TEMP 98.1; O2SAT 96
[2023-04-14] MEDS ORDERED: MAGNESIUM SULFATE 1GM/100ML 100 ML IV ONE (09:15)
[2023-04-14] MEDS: ASPirin-EC 81 mg tab PO SCH (09:26)
[2023-04-14] MEDS: ENOXAPARIN SOD 30 MG/0.3 ML SYRINGE SC SCH (09:27)
[2023-04-14] MEDS: PANTOPRAZOLE 40 MG TAB PO SCH (09:27)
[2023-04-14 10:48] LABS: Band Neutrophils % (manual) 3; Lymphocytes % (manual) 8 (10.0-50.0); Metamyelocytes % 1; Monocytes % (manual) 6 (0-12); Platelet Estimate Decreased
[2023-04-14] MEDS: CEFTRIAXONE SODIUM 2 GM in D5W 5% 100 ML IV SCH (11:08)
[2023-04-14 12:00] VITALS: BP 125/98; PULSE 75; RESP 20; TEMP 97.8; O2SAT 96
[2023-04-14 16:00] VITALS: BP 118/51; PULSE 84; RESP 20; TEMP 97.7; O2SAT 92
[2023-04-14 17:07] LABS: COVID19 ANTIGEN SOFIA FIA NEGATIVE (NEGATIVE)
[2023-04-14 18:49] VITALS: BP 118/51; PULSE 84; RESP 20; TEMP 97.7; O2SAT 92
[2023-04-15] MEDS ORDERED: MAGNESIUM OXIDE 400 MG TAB PO SCH (10:00)
== END 2023-04-14 19:45 | DRG 871 ==
LOC: EDBD 12:01 → ER 12:01 → TELE 16:15 → TELE-CENTR 04-13 10:04
PROVIDERS: ADMIT Nurse Practitioner Family; ATTEND Internal Medicine
DX: A41.9 Sepsis, unspecified organism (principal); I21.4 Non-ST elevation (NSTEMI) myocardial infarction; R65.21 Severe sepsis with septic shock; N17.9 Acute kidney failure, unspecified; I50.32 Chronic diastolic (congestive) heart failure; N13.6 Pyonephrosis; Z68.1 Body mass index [BMI] 19.9 or less, adult; D69.6 Thrombocytopenia, unspecified; I95.1 Orthostatic hypotension; Z20.822 Contact with and (suspected) exposure to COVID-19; K80.20 Calculus of gallbladder without cholecystitis without obstruction; L89.329 Pressure ulcer of left buttock, unspecified stage; Z96.642 Presence of left artificial hip joint; I11.0 Hypertensive heart disease with heart failure; E66.9 Obesity, unspecified; I49.5 Sick sinus syndrome; Z82.0 Family history of epilepsy and other diseases of the nervous system; Z80.1 Family history of malignant neoplasm of trachea, bronchus and lung
CPT/HCPCS: 36415; 71045; 71275; 74176; 76705; 80048; 80053; 80061; 81001; 82550; 83036; 83605; 83690; 83735; 84100; 84443; 84484; 85007; 85025; 85027; 85048; 85379; 86803; 87040; 87077; 87086; 87088; 87186; 87340; 87426; 87493; 93005; 93306; 93971; 96361; 96365; 97163; 99291; G0378; J0696; J2543; J3490; J7060

== ENCOUNTER → 2023-08-01 | Outpatient (CLI) | payer OTHER ==
[2023-08-01 16:15] LABS: Urine Bacteria MOD /hpf (None Seen); Urine Blood TRACE /uL (Negative); Urine Clarity HAZY (Clear); Urine Color Yellow (Yellow); Urine Protein, UAD Negative (Negative); Urine Specific Gravity 1.019 (1.001-1.035); Urine Urobilinogen Normal (Negative); Urine WBC 273 /hpf (0 - 5)
== END | disposition home or self-care (01) ==
LOC: LAB 15:43
PROVIDERS: ATTEND Nurse Practitioner
DX: N39.0 Urinary tract infection, site not specified (principal)
CPT/HCPCS: 81001

== ENCOUNTER 2023-08-21 11:58 | Inpatient (IN) | payer OTHER ==
[~2023-08-21] VITALS: Ht 160 cm; Wt 76.7 kg
[2023-08-21] MEDS ORDERED: SODIUM CHLORIDE 0.9% 1,000 ML IV ONE ×2 (13:00→15:15)
[2023-08-21 13:38] LABS: Basophils # (auto) 0 10 ^3/uL (0-0.2); Basophils % (auto) 0.1 % (0.0-2.0); Eosinophils # (auto) 0.7 10 ^3/uL (0-0.8); Eosinophils % (auto) 4.6 % (0.0-7.0); Hemoglobin 13.5 g/dL (12.2-16.2); Lymphocytes # (auto) 0.3 10 ^3/uL (0.4-5.4); Lymphocytes % (auto) 1.7 % (10.0-50.0); Mean Corpuscular Hemoglobin 28.5 pg (28.0-32.0); Mean Corpuscular Hgb Conc. 32.2 g/dL (32.0-36.0); Mean Corpuscular Volume 88.4 fL (80.0-100.0); Monocytes # (auto) 0.4 10 ^3/uL (0-1.3); Monocytes % (auto) 2.8 % (0.0-12.0); Neutrophils # (auto) 14.3 10 ^3/uL (1.6-8.6); Neutrophils % (auto) 90.8 % (37.0-80.0); Nucleated Red Blood Cells % 0.1 %; Red Blood Cells 4.75 10^6/uL (4.0-5.20); Red Cell Distribution Width 14.8 % (11.8-14.3); White Blood Cell 15.8 10^3/uL (4.4-10.8)
[2023-08-21 13:48] LABS: Chloride 104 mmol/L (98-107); Potassium 3.4 mmol/L (3.5-5.1); Sodium 135 mmol/L (136-145)
[2023-08-21 13:49] LABS: Anion Gap 10 (5-15); Carbon Dioxide 21 mmol/L (20-30)
[2023-08-21 13:50] LABS: Calcium 9.4 mg/dL (8.5-10.1)
[2023-08-21 13:54] LABS: BUN/Creatinine Ratio 27.5 (10.0-20.0); Blood Urea Nitrogen 22 mg/dL (9-23); Glucose 102 mg/dL (74-106)
[2023-08-21 13:58] LABS: Lactic Acid w/Reflex 2.5 mmol/L (0.4-2.0)
[2023-08-21 14:18] LABS: Urine Bacteria MOD /hpf (None Seen); Urine Blood TRACE /uL (Negative); Urine Clarity HAZY (Clear); Urine Color Yellow (Yellow); Urine Protein, UAD TRACE (Negative); Urine Specific Gravity 1.019 (1.001-1.035); Urine Urobilinogen Normal (Negative); Urine WBC 56 /hpf (0 - 5)
[2023-08-21] MEDS ORDERED: cefTRIAXone 1GM/50ML D5W 50 ML IV ONE (15:15)
[2023-08-21] MEDS ORDERED: ONDANSETRON HCL 4 MG/2 ML VIAL IV PRN (18:15)
[2023-08-21] MEDS ORDERED: POTASSIUM EFFERVESENT TAB 25 MEQ PO ONE (18:15)
[2023-08-21] MEDS ORDERED: DOCUSATE SOD 100 MG CAP PO PRN (18:15)
[2023-08-21] MEDS ORDERED: MORPHINE SULFATE INJ 2 MG/ml SYRG IV PRN (18:15)
[2023-08-21] MEDS ORDERED: levoFLOXacin 500MG 100 ML IV ONE (19:00)
[2023-08-21] MEDS: SODIUM CHLORIDE 0.9% 1,000 ML IV SCH (20:21)
[2023-08-21] MEDS: ENOXAPARIN SOD 40 MG/0.4 ML SYRINGE SC SCH (20:21)
[2023-08-22 02:01] VITALS: BP 122/52; PULSE 95; RESP 18; TEMP 98.1; O2SAT 97
[2023-08-22] MEDS ORDERED: NITR100C6 PO (03:01)
[2023-08-22] MEDS ORDERED: OXYB2.5T (03:03)
[2023-08-22] MEDS: SODIUM CHLORIDE 0.9% 1,000 ML IV SCH ×2 (04:15→09:45)
[2023-08-22 05:00] VITALS: BP 121/61; PULSE 68; RESP 18; TEMP 98.1; O2SAT 99
[2023-08-22 07:47] LABS: Basophils # (auto) 0 10 ^3/uL (0-0.2); Basophils % (auto) 0.4 % (0.0-2.0); Eosinophils # (auto) 0.9 10 ^3/uL (0-0.8); Eosinophils % (auto) 11.8 % (0.0-7.0); Hematocrit 35.7 % (36.0-46.0); Hemoglobin 11.7 g/dL (12.2-16.2); Lymphocytes # (auto) 0.5 10 ^3/uL (0.4-5.4); Lymphocytes % (auto) 6.4 % (10.0-50.0); Mean Corpuscular Hemoglobin 28.5 pg (28.0-32.0); Mean Corpuscular Hgb Conc. 32.8 g/dL (32.0-36.0); Mean Corpuscular Volume 86.8 fL (80.0-100.0); Monocytes # (auto) 0.4 10 ^3/uL (0-1.3); Monocytes % (auto) 5.4 % (0.0-12.0); Red Blood Cells 4.11 10^6/uL (4.0-5.20); Red Cell Distribution Width 14.8 % (11.8-14.3); White Blood Cell 7.9 10^3/uL (4.4-10.8)
[2023-08-22 07:52] LABS: Alanine Aminotransferase 19 U/L (7-40); Albumin 3.4 g/dL (3.2-4.8); Aspartate Aminotransferase 28 U/L (13-40); Bilirubin, Total 0.5 mg/dL (0.2-1.0); Blood Urea Nitrogen 31 mg/dL (9-23); Chloride 106 mmol/L (98-107); Potassium 3.8 mmol/L (3.5-5.1); Sodium 137 mmol/L (136-145)
[2023-08-22 07:54] LABS: Anion Gap 10 (5-15); Carbon Dioxide 21 mmol/L (20-30)
[2023-08-22 07:55] LABS: Calcium 8.7 mg/dL (8.5-10.1)
[2023-08-22 07:59] LABS: BUN/Creatinine Ratio 43.7 (10.0-20.0); Glucose 83 mg/dL (74-106)
[2023-08-22 08:00] VITALS: PULSE 97
[2023-08-22 08:00] LABS: Alkaline Phosphatase 58 U/L (46-116)
[2023-08-22 08:39] LABS: % Iron Saturation 18.2 % (15-50)
[2023-08-22] MEDS: ENOXAPARIN SOD 40 MG/0.4 ML SYRINGE SC SCH (08:59)
[2023-08-22 09:00] VITALS: BP 139/62; PULSE 52; RESP 16; TEMP 98.1; O2SAT 98
[2023-08-22 13:00] VITALS: BP 110/50; PULSE 67; RESP 16; TEMP 98.2; O2SAT 96
[2023-08-22] MEDS ORDERED: LEVO750T8 PO (13:52)
[2023-08-22 14:13] VITALS: TEMP 36.7
[2023-08-22] MEDS ORDERED: levoFLOXacin 250MG 50 ML IV SCH (20:00)
== END 2023-08-22 16:46 | disposition home or self-care (01) | DRG 872 ==
LOC: ER 11:58 → TELE-WESTW 18:29 → TELE 18:29 → TELE-WESTW 08-22 01:56
PROVIDERS: ADMIT Internal Medicine; ATTEND Internal Medicine
DX: A41.9 Sepsis, unspecified organism (principal); I50.32 Chronic diastolic (congestive) heart failure; N39.0 Urinary tract infection, site not specified; E86.0 Dehydration; E87.6 Hypokalemia; I11.0 Hypertensive heart disease with heart failure; K80.20 Calculus of gallbladder without cholecystitis without obstruction; I49.5 Sick sinus syndrome; Z74.01 Bed confinement status; Z95.0 Presence of cardiac pacemaker
CPT/HCPCS: 36415; 71045; 74176; 80048; 80053; 81001; 82306; 82607; 82962; 83540; 83550; 83605; 84443; 85025; 87040; 87086; 93005; 96361; 96365; G0378; J1956; J2405

== ENCOUNTER → 2024-02-20 | Outpatient (CLI) | payer OTHER ==
[~2024-02-20] MED LIST changes: +LEVO750T8 PO; -LISI-706 PO; +NITR100C6 PO; +OXYB2.5T
[2024-02-20 10:36] LABS: Basophils # (auto) 0.1 10 ^3/uL (0-0.2); Basophils % (auto) 0.9 % (0.0-2.0); Eosinophils # (auto) 0.2 10 ^3/uL (0-0.8); Eosinophils % (auto) 2.4 % (0.0-7.0); Hematocrit 40.2 % (36.0-46.0); Hemoglobin 13.5 g/dL (12.2-16.2); Lymphocytes # (auto) 1.2 10 ^3/uL (0.4-5.4); Lymphocytes % (auto) 14.7 % (10.0-50.0); Mean Corpuscular Hemoglobin 29.5 pg (28.0-32.0); Mean Corpuscular Hgb Conc. 33.6 g/dL (32.0-36.0); Mean Corpuscular Volume 87.8 fL (80.0-100.0); Monocytes # (auto) 0.6 10 ^3/uL (0-1.3); Monocytes % (auto) 7.2 % (0.0-12.0); Neutrophils # (auto) 6.3 10 ^3/uL (1.6-8.6); Neutrophils % (auto) 74.8 % (37.0-80.0); Nucleated Red Blood Cells % 0.1 %; Red Blood Cells 4.58 10^6/uL (4.0-5.20); Red Cell Distribution Width 14.9 % (11.8-14.3); White Blood Cell 8.4 10^3/uL (4.4-10.8)
[2024-02-20 10:53] LABS: Urine Bacteria FEW /hpf (None Seen); Urine Blood 1+ /uL (Negative); Urine Clarity Ex.Turbid (Clear); Urine Color Light-Brown (Yellow); Urine Mucus FEW (None Seen); Urine Protein, UAD 2+ (Negative); Urine Specific Gravity 1.024 (1.001-1.035); Urine Urobilinogen Normal (Negative); Urine WBC 1689 /hpf (0 - 5); Urine WBC Clumps PRESENT /hpf (None Seen); Urine pH 7.5 (5.0-9.0)
[2024-02-20 11:33] LABS: Alanine Aminotransferase 15 U/L (7-40); Alkaline Phosphatase 70 U/L (46-116); Anion Gap 5 (5-15); Aspartate Aminotransferase 14 U/L (13-40); BUN/Creatinine Ratio 29.1 (10.0-20.0); Blood Urea Nitrogen 23 mg/dL (9-23); Calcium 9.4 mg/dL (8.5-10.1); Carbon Dioxide 23 mmol/L (20-30); Chloride 112 mmol/L (98-107); Glucose 104 mg/dL (74-106); LDL Cholesterol 107 mg/dL (< 100); Sodium 140 mmol/L (136-145); Triglycerides 71 mg/dL (< 150)
[2024-02-20 11:34] LABS: Bilirubin, Total 0.8 mg/dL (0.2-1.0); Cholesterol 161 mg/dL (< 200); HDL Cholesterol 44 mg/dL (40-59); Total Protein 7.3 g/dL (5.7-8.2)
== END | disposition home or self-care (01) ==
LOC: LAB 10:15
PROVIDERS: ATTEND Nurse Practitioner
DX: E78.5 Hyperlipidemia, unspecified (principal); I10 Essential (primary) hypertension
CPT/HCPCS: 36415; 80053; 80061; 81001; 83036; 84443; 85025